=== PATIENT | male | born 1980 | race Two or more races ===

== ENCOUNTER → 2023-06-01 | Emergency (ER) | payer OTHER ==
[~2023-06-01] VITALS: Ht 177.8 cm; Wt 90.7 kg
[~2023-06-01] MED LIST: DICLOFENAC SODI75 MG PO; NORFLEX100MG PO
== END | disposition home or self-care (01) ==
LOC: ER 21:15
DX: M62.838 Other muscle spasm (principal); M54.9 Dorsalgia, unspecified